=== PATIENT | female | born 2005 | race African-American/Black ===

== ENCOUNTER 2024-02-02 01:31 | Emergency (ER) | payer MEDICAID ==
[~2024-02-02] VITALS: Ht 162.6 cm; Wt 54.0 kg
[2024-02-02 01:36] VITALS: PULSE 100
[2024-02-02 01:41] VITALS: BP 123/68; RESP 16; TEMP 98.2; O2SAT 100
[2024-02-02 02:26] LABS: BASOPHILS % 0.9 % (0.0-2.0); EOSINOPHILS % 0.3 % (0.0-5.0); HEMATOCRIT. 35.4 % (36.0-48.0); HEMOGLOBIN. 12.3 g/dL (12.0-16.0); LYMPHOCYTES % 22.8 % (20.0-50.0); MEAN CORPUSCULAR HEMOGLOBIN 30.7 pg (28.0-32.0); MEAN CORPUSCULAR HGB CONC 34.8 g/dL (31.0-37.0); MEAN CORPUSCULAR VOLUME 88.2 fL (81.0-99.0); MEAN PLATELET VOLUME 8.8 fl (7.4-10.4); MONOCYTES % 6.3 % (2.0-8.0); NEUTROPHILS % 69.7 % (40.0-76.0); PLATELET 394 x1000/uL (130-400); RED BLOOD CELL COUNT 4.01 mill/uL (4.2-5.4); RED CELL DISTRIBUTION WIDTH 14.1 % (11.6-14.6); WHITE BLOOD COUNT 8.8 x1000/uL (4.5-11.0)
[2024-02-02] MEDS ORDERED: DOXY100T2 MT (03:12)
[2024-02-02] MEDS: CEFTRIAXONE SODIUM 500MG VIAL IM ONE (03:21)
[2024-02-02 05:45] LABS: UCG SCREEN NEGATIVE
[2024-02-03 14:10] LABS: CHLAMYDIA TRACHOMATIS NAA Negative (Negative); NEISSERIA GONORRHOEAE NAA Negative (Negative)
== END 2024-02-02 03:57 | disposition home or self-care (01) ==
LOC: ER 01:31
DX: N93.8 Other specified abnormal uterine and vaginal bleeding (principal); Z98.890 Other specified postprocedural states
CPT/HCPCS: 87491; 87591; 81025; 85025; 86850; 86900; 86901; 36415; 96372; 99283; J0696; Z7610 ×2

== ENCOUNTER 2024-02-12 04:27 | Emergency (ER) | payer MEDICAID ==
[~2024-02-12] VITALS: Ht 162.6 cm; Wt 57.0 kg
[~2024-02-12 04:27] MED LIST: DOXY100T2 MT
[2024-02-12 04:38] VITALS: O2SAT 98
[2024-02-12 04:58] LABS: CLARITY URINE CLEAR (CLEAR); COLOR URINE YELLOW (YELLOW); GLUCOSE URINE NEGATIVE (NEGATIVE); KETONES URINE 2+ (NEGATIVE); LEUKOCYTE ESTERASE URINE NEGATIVE (NEGATIVE); NITRITE URINE NEGATIVE (NEGATIVE); OCCULT BLOOD URINE 1+ (NEGATIVE); PH URINE 5.5 (4.5-8.0); PROTEIN URINE NEGATIVE (NEGATIVE); SPECIFIC GRAVITY URINE 1.028 (1.005-1.030); UROBILINOGEN URINE 0.2 E.U./dL (0.2-1.0)
[2024-02-12 05:16] LABS: BACTERIA URINE NONE SEEN; MUCUS URINE 1+ /lpf (< = 2+); RBC URINE 0-2 /hpf (0-2); SQUAMOUS EPITHELIAL CELL URINE 1+ /lpf (RARE/1+); WBC URINE 0-2 /hpf (0-2)
[2024-02-12 05:21] LABS: BASOPHILS % 0.6 % (0.0-2.0); EOSINOPHILS % 0.4 % (0.0-5.0); HEMATOCRIT. 37.4 % (36.0-48.0); HEMOGLOBIN. 12.4 g/dL (12.0-16.0); LYMPHOCYTES % 12.1 % (20.0-50.0); MEAN CORPUSCULAR HGB CONC 33.2 g/dL (31.0-37.0); MEAN CORPUSCULAR VOLUME 90.5 fL (81.0-99.0); MEAN PLATELET VOLUME 9.4 fl (7.4-10.4); NEUTROPHILS % 83.9 % (40.0-76.0); PLATELET 359 x1000/uL (130-400); RED BLOOD CELL COUNT 4.13 mill/uL (4.2-5.4); RED CELL DISTRIBUTION WIDTH 14.4 % (11.6-14.6); WHITE BLOOD COUNT 11.9 x1000/uL (4.5-11.0)
[2024-02-12 05:28] LABS: CARBON DIOXIDE 24 mEq/L (21-32); CHLORIDE 105 mEq/L (98-107); POTASSIUM 3.7 mEq/L (3.5-5.1); SODIUM 136 mEq/L (136-145)
[2024-02-12 05:29] LABS: CALCIUM 9.9 mg/dL (8.7-10.4)
[2024-02-12 05:34] LABS: CREATININE 0.7 mg/dL (0.6-1.0); GLUCOSE 101 mg/dL (70-105); UREA NITROGEN BLOOD 11 mg/dL (9-23)
[2024-02-12 05:35] LABS: ALANINE AMINOTRANSFERASE 17 IU/L (10-49)
[2024-02-12 05:36] LABS: ASPARTATE AMINOTRANSFERASE 19 IU/L (<34); BILIRUBIN DIRECT 0.1 mg/dL (<=3.0); BILIRUBIN TOTAL 0.4 mg/dL (0.1-1.0); PROTEIN TOTAL 7.6 g/dL (6.0-8.3)
[2024-02-12] MEDS ORDERED: DICY20TA2 MT (06:59)
[2024-02-12] MEDS ORDERED: ONDA4TAB11 PO (06:59)
[2024-02-12] MEDS: ONDANSETRON 4MG ODT PO ONE (07:26)
[2024-02-12] MEDS: DICYCLOMINE HCL 20MG TABLET PO STA (07:26)
[2024-02-12 07:27] VITALS: BP 100/74; PULSE 100; RESP 18; TEMP 98.7
[2024-02-12] MEDS: ONDANSETRON 4MG ODT PO NR (07:27)
== END 2024-02-12 07:28 | disposition home or self-care (01) ==
LOC: ER 04:27
DX: R10.9 Unspecified abdominal pain (principal); R11.2 Nausea with vomiting, unspecified
CPT/HCPCS: 99283; 80076; 80048; 81003; 81025; 85025; 36415; Q0162

== ENCOUNTER 2024-11-09 02:31 | Emergency (ER) | payer MEDICAID, OTHER ==
[~2024-11-09] VITALS: Ht 162.6 cm; Wt 56.0 kg
[~2024-11-09 02:31] MED LIST changes: +DICY20TA2 MT; +ONDA-239 PO
[2024-11-09 02:41] VITALS: O2SAT 100
[2024-11-09 02:58] VITALS: TEMP 36.9; O2SAT 100
[2024-11-09 06:33] LABS: BASOPHILS % 1.1 % (0.0-2.0); EOSINOPHILS % 1.4 % (0.0-5.0); HEMATOCRIT. 34.5 % (36.0-48.0); HEMOGLOBIN. 11.7 g/dL (12.0-16.0); LYMPHOCYTES % 25.2 % (20.0-50.0); MEAN CORPUSCULAR HEMOGLOBIN 29.6 pg (28.0-32.0); MEAN CORPUSCULAR HGB CONC 33.8 g/dL (31.0-37.0); MEAN CORPUSCULAR VOLUME 87.6 fL (81.0-99.0); MEAN PLATELET VOLUME 9.4 fl (7.4-10.4); MONOCYTES % 5.8 % (2.0-8.0); NEUTROPHILS % 66.5 % (40.0-76.0); PLATELET 378 x1000/uL (130-400); RED BLOOD CELL COUNT 3.95 mill/uL (4.2-5.4); RED CELL DISTRIBUTION WIDTH 13.3 % (11.6-14.6)
[2024-11-09 06:44] LABS: CHLORIDE 107 mEq/L (98-107); POTASSIUM 4.1 mEq/L (3.5-5.1); SODIUM 141 mEq/L (136-145)
[2024-11-09 06:45] LABS: CARBON DIOXIDE 25 mEq/L (21-32)
[2024-11-09 06:46] LABS: CALCIUM 9.3 mg/dL (8.7-10.4)
[2024-11-09 06:50] LABS: CREATININE 0.7 mg/dL (0.6-1.0); GLUCOSE 126 mg/dL (70-105)
[2024-11-09 06:51] LABS: UREA NITROGEN BLOOD 14 mg/dL (9-23)
[2024-11-09 06:52] LABS: ALANINE AMINOTRANSFERASE 13 IU/L (10-49); ALBUMIN 4.3 g/dL (3.2-4.8); ASPARTATE AMINOTRANSFERASE 15 IU/L (<34)
[2024-11-09] MEDS: METOCLOPRAMIDE HCL 10MG/2ML VIAL IV ONE (06:52)
[2024-11-09 06:53] LABS: BILIRUBIN TOTAL 0.2 mg/dL (0.1-1.0); PROTEIN TOTAL 7.2 g/dL (6.0-8.3)
[2024-11-09 06:58] VITALS: BP 117/52; PULSE 78; RESP 14
[2024-11-09] MEDS: KETOROLAC 15MG/ML VIAL IV ONE (06:58)
[2024-11-09 07:15] LABS: HCG SCREEN NEGATIVE
== END 2024-11-09 09:02 | disposition left against medical advice (07) ==
LOC: ER 02:31 → EDBEDREQ 07:49 → EDBEDREQTM 07:49 → ER 09:02
DX: R51.9 Headache, unspecified (principal); R56.9 Unspecified convulsions; J45.909 Unspecified asthma, uncomplicated
CPT/HCPCS: 80053; 81025; 84703; 85025; 36415; 70450; 93005; 96374; 96375; 99285; J1885; J2765; Z7610